=== PATIENT | female | born 1940 ===

== ENCOUNTER 2023-04-16 12:43 | Outpatient (CLI) | payer OTHER, SELFPAY | END 2023-04-16 12:44 | disposition home or self-care (01) | LOC: ANHAUDIO 12:45 | PROVIDERS: PCP Family Medicine; Visit Provider Family Medicine | DX: H90.3 Sensorineural hearing loss, bilateral (principal) | CPT/HCPCS: 92557; 92567 ==

== ENCOUNTER 2023-07-12 12:30 | Outpatient (RCR) | payer OTHER, SELFPAY | END 2023-07-12 23:59 | disposition home or self-care (01) | LOC: ANHAUDIO 12:30 | PROVIDERS: PCP Family Medicine; Visit Provider Family Medicine | DX: Z46.1 Encounter for fitting and adjustment of hearing aid (principal) | CPT/HCPCS: 99199; V5261 ==